=== PATIENT | male | born 1980 | race Caucasian/White ===

== ENCOUNTER 2022-06-28 12:30 | Emergency (ER) | payer OTHER, MEDICAID ==
[2022-06-28] MEDS ORDERED: Ondansetron PF 4 MG/2 ML Vial ONE (13:34)
[2022-06-28 14:08] LABS: ALT (SGPT) 18 U/L (8-55); AST (SGOT) 23 U/L (5-34); Alkaline Phosphatase 56 U/L (40-110); Anion Gap 17 mmol/L (10-20); BUN (Urea Nitrogen) 21 mg/dL (8.9-20.6); Bilirubin, Total 0.7 mg/dL (0.2-1.2); Calc. Creatinine Clearance 0 mL/min (70-130); Carbon Dioxide 21 mmol/L (22-29); Chloride 105 mmol/L (98-107); Estimated GFR 65; Globulin 3.7 g/dL (2.4-3.5); Glucose 126 mg/dL (70-105); Lipase 20 U/L (8-78); Potassium 3.9 mmol/L (3.5-5.1); Protein, Total 7.7 g/dL (6.0-8.3); Sodium 139 mmol/L (136-145)
[2022-06-28 14:09] LABS: Hemoglobin 15.4 g/dL (13.5-17.5); Mean Platelet Volume 9.7 fl (7.4-10.4); Platelet Count 156 10x3/uL (150-450); RBC Distribution Width 14.5 % (11.5-14.5); Red Blood Cell (RBC) Count 4.67 10x6/uL (4.32-5.72); White Blood Cell (WBC) Count 11.1 10x3/uL (3.5-10.5)
[2022-06-28 15:10] LABS: MDiff Complete? YES
[2022-06-28 15:14] LABS: Band 14 % (5-11); Lymphocytes 2 % (21-51); Monocytes 1 % (0-10); Neutrophil 82 % (42-75); Reactive Lymphocytes 1 % (0-10)
[2022-06-28 15:15] LABS: Platelet Morphology Comment Appears Adequate; RBC Morphology Normal
[2022-06-28] MEDS ORDERED: Dicyclomine 20 MG TAB ONE (15:17)
== END 2022-06-28 13:21 | disposition home or self-care (01) ==
LOC: CSHERS 12:30
DX: R55 Syncope and collapse (principal); R11.2 Nausea with vomiting, unspecified
CPT/HCPCS: 70450; 71045; 80053; 83605; 83690; 85025; 93005; 96361; 96374; J2405

== ENCOUNTER 2024-04-28 13:26 | Emergency (ER) | payer OTHER, MEDICAID ==
[2024-04-28 14:12] LABS: Hematocrit 43.2 % (38.8-50.0); Hemoglobin 14.6 g/dL (13.5-17.5); Mean Corpuscular HGB CONC 33.8 g/dL (32.0-36.0); Mean Corpuscular Hemoglobin 32.7 pg (27.0-33.0); Mean Corpuscular Volume 96.9 fL (81.2-95.1); Platelet Count 172 10x3/uL (130-400); RBC Distribution Width 14.1 % (11.5-14.5); Red Blood Cell (RBC) Count 4.46 10x6/uL (4.32-5.72); White Blood Cell (WBC) Count 7.1 10x3/uL (3.5-10.5)
[2024-04-28 14:13] LABS: #Basophils 0.05 10x3/uL (0.0-0.2); #Eosinophils 0.04 10x3/uL (0.0-0.5); #Monocytes 0.56 10x3/uL (0.0-1.1); #Neutrophils 3.85 10x3/uL (1.5-8.4); %Basophils 0.7 % (0.0-2.0); %Eosinophils 0.6 % (0.0-6.0); %Lymphocytes 36.4 % (18.0-47.0); %Monocytes 7.9 % (0.0-10.0); %Neutrophils 54.1 % (40.0-75.0); Mean Platelet Volume 9.5 fL (7.4-10.4)
[2024-04-28 14:34] LABS: Anion Gap 14 mmol/L (10-20); BUN (Urea Nitrogen) 21 mg/dL (8.9-20.6); Calc. Creatinine Clearance 0 mL/min (70-130); Calcium 8.8 mg/dL (7.8-10.44); Carbon Dioxide 23 mmol/L (22-29); Chloride 108 mmol/L (98-107); Estimated GFR 69; Glucose 126 mg/dL (70-105); Potassium 3.9 mmol/L (3.5-5.1); Sodium 141 mmol/L (136-145); Troponin I Less than 0.010 ng/mL (< 0.028)
[2024-04-28] MEDS ORDERED: Fluticasone Propionate Nasal Spray 16 gm Bottle NASAL SCH (15:00)
== END 2024-04-28 15:20 | disposition home or self-care (01) ==
LOC: CSHERS 13:26
DX: R55 Syncope and collapse (principal)
CPT/HCPCS: 70450; 71045; 80048; 84484; 85025; 93005